=== PATIENT | male | born 1950 | race Caucasian/White ===

== ENCOUNTER 2017-04-18 09:57 | Outpatient (CLI) | payer BC ==
[2017-04-18] MEDS ORDERED: Gadobenate Dimeglumine 529 MG/1 ML (20ML VIAL) ONE (13:50)
== END 2017-04-18 09:58 | disposition home or self-care (01) ==
LOC: BICMRI 09:57
PROVIDERS: ATTEND Family Medicine
DX: M54.2 Cervicalgia (principal); J39.8 Other specified diseases of upper respiratory tract; J98.11 Atelectasis; M47.892 Other spondylosis, cervical region
CPT/HCPCS: 70543; A9579

== ENCOUNTER 2020-05-18 16:46 | Inpatient (IN) | payer MEDICARE, OTHER ==
[2020-05-18] MEDS ORDERED: Acetaminophen 500 MG TAB ONE (17:18)
[2020-05-18] MEDS ORDERED: Ketorolac Tromethamine 30 MG/ML VIAL ONE (17:18)
[2020-05-18 17:29] LABS: #Eosinphils 0.4 thou/uL (0.0-0.7); #Lymphocytes 1.4 thou/uL (1.20-3.40); #Monocytes 0.8 thou/uL (0.11-0.59); #Neutrophils 5.1 thou/uL (1.40-6.50); %Basophils 0.2 % (0.0-1.0); %Eosinophils 5.1 % (0.0-10.0); %Lymphocytes 18.5 % (21.0-51.0); %Monocytes 10.8 % (0.0-10.0); %Neutrophils 65.4 % (42.0-75.0); Hemoglobin 14.3 g/dL (14.0-18.0); Mean Corpuscular HGB CONC 34.1 g/dL (32.0-36.0); Mean Platelet Volume 6.3 fL (7.4-10.4); Platelet Count 172 thou/uL (130-400); RBC Distribution Width 11.7 % (11.5-14.5); White Blood Cell (WBC) Count 7.8 thou/uL (4.8-10.8)
[2020-05-18 18:21] LABS: ALT (SGPT) 24 U/L (8-55); AST (SGOT) 29 U/L (5-34); Albumin 3.9 g/dL (3.4-4.8); Alkaline Phosphatase 81 U/L (40-110); Anion Gap 14 mmol/L (10-20); BUN (Urea Nitrogen) 16 mg/dL (8.4-25.7); Bilirubin, Total 0.5 mg/dL (0.2-1.2); Calc. Creatinine Clearance 0 mL/min (70-130); Calcium 9.7 mg/dL (7.8-10.44); Carbon Dioxide 24 mmol/L (23-31); Chloride 102 mmol/L (98-107); Globulin 4.9 g/dL (2.4-3.5); Glucose 231 mg/dL (80-115); Potassium 4.3 mmol/L (3.5-5.1); Protein, Total 8.8 g/dL (5.8-8.1); Sodium 136 mmol/L (136-145)
[2020-05-18] MEDS ORDERED: Benzonatate 100 MG CAP ONE (18:36)
[2020-05-18] MEDS ORDERED: Acetaminophen/Codeine 30-300mg Tablet ONE (18:36)
[2020-05-18 18:48] LABS: SARS-CoV-2 NAA Rapid Test Not Detected (NotDetected)
[2020-05-18] MEDS ORDERED: Promethazine HCl 12.5 MG in Sodium Chloride 0.9% 50 ML IVPB PRN (21:48)
[2020-05-18] MEDS ORDERED: cloNIDine 0.1 MG TAB PO PRN (21:48)
[2020-05-18] MEDS ORDERED: Ondansetron PF 4 MG/2 ML Vial IVP PRN (21:48)
[2020-05-18] MEDS ORDERED: Electrolyte Replacement Protocol 1 EACH FS SCH (22:00)
[2020-05-18] MEDS ORDERED: Vancomycin HCl 1 GM in Sodium Chloride 0.9% 250 ML 250 ML IVPB SCH (22:15)
[2020-05-19] MEDS ORDERED: Dextrose 50% Abboject 50 ML SYRINGE SLOW IVP PRN (02:00)
[2020-05-19] MEDS ORDERED: Dextrose 5% in Water 1,000 ML IV PRN (02:00)
[2020-05-19] MEDS ORDERED: Azithromycin 500 MG VIAL ONE (02:07)
[2020-05-19] MEDS: Azithromycin 500 MG in Sodium Chloride 0.9% 250 ML 250 ML IVPB SCH ×2 (02:12→23:00)
[2020-05-19] MEDS: Guaifenesin DM 100-10/5 ML UDCUP PO PRN ×2 (04:02→23:47)
[2020-05-19 05:09] LABS: #Eosinphils 0.4 thou/uL (0.0-0.7); #Lymphocytes 1.2 thou/uL (1.20-3.40); #Monocytes 0.4 thou/uL (0.11-0.59); #Neutrophils 3.4 thou/uL (1.40-6.50); %Eosinophils 6.8 % (0.0-10.0); %Lymphocytes 21.8 % (21.0-51.0); %Monocytes 8.2 % (0.0-10.0); %Neutrophils 63.2 % (42.0-75.0); Hemoglobin 13.1 g/dL (14.0-18.0); Mean Corpuscular HGB CONC 34.3 g/dL (32.0-36.0); Mean Corpuscular Hemoglobin 31.5 pg (27.0-31.0); Mean Corpuscular Volume 91.9 fL (78.0-98.0); Mean Platelet Volume 6.5 fL (7.4-10.4); Platelet Count 150 thou/uL (130-400); RBC Distribution Width 11.8 % (11.5-14.5); Red Blood Cell (RBC) Count 4.16 mill/uL (4.70-6.10); White Blood Cell (WBC) Count 5.4 thou/uL (4.8-10.8)
[2020-05-19 05:19] LABS: Anion Gap 13 mmol/L (10-20); BUN (Urea Nitrogen) 19 mg/dL (8.4-25.7); Calc. Creatinine Clearance 0 mL/min (70-130); Calcium 8.7 mg/dL (7.8-10.44); Carbon Dioxide 22 mmol/L (23-31); Chloride 104 mmol/L (98-107); Glucose 222 mg/dL (80-115); Magnesium 1.8 mg/dL (1.6-2.6); Potassium 4.3 mmol/L (3.5-5.1); Sodium 135 mmol/L (136-145)
[2020-05-19] MEDS ORDERED: Benzonatate 100 MG CAP ONE (05:38)
[2020-05-19] MEDS ORDERED: Magnesium 2 GM/50 ML 2 GM in Premix Bag 1 BAG IVPB SCH ×2 (06:30→16:15)
[2020-05-19] MEDS ORDERED: Famotidine 20 MG TAB ONE (09:10)
[2020-05-19] MEDS: Famotidine 20 MG TAB PO SCH ×2 (10:07→20:34)
[2020-05-19] MEDS: Polyethylene Glycol 3350 17 GM Packet PO SCH (10:09)
[2020-05-19 11:33] VITALS: BMI 35.1
[2020-05-19] MEDS: HumaLOG 300 UNITS/3 ML VIAL SC PRN (16:58)
[2020-05-19] MEDS: Benzonatate 100 MG CAP PO PRN (20:34)
[2020-05-19] MEDS: Enoxaparin Sodium 40 MG/0.4 ML SYRINGE SC SCH (20:35)
[2020-05-19] MEDS ORDERED: Azithromycin 500 MG in Syringe 0 ML IVPB SCH (21:00)
[2020-05-19] MEDS: cefTRIAXone\\ROCEPHIN 1 GM in Sodium Chloride 0.9% 100 ML IVPB SCH (23:00)
[2020-05-20] MEDS: Benzonatate 100 MG CAP PO PRN ×3 (01:05→19:56)
[2020-05-20] MEDS: Acetaminophen 325 MG TAB PO PRN ×3 (02:29→20:11)
[2020-05-20 06:25] LABS: #Eosinphils 0.4 thou/uL (0.0-0.7); #Lymphocytes 1.1 thou/uL (1.20-3.40); #Monocytes 0.5 thou/uL (0.11-0.59); #Neutrophils 3.3 thou/uL (1.40-6.50); %Basophils 0.2 % (0.0-1.0); %Eosinophils 6.7 % (0.0-10.0); %Lymphocytes 21.4 % (21.0-51.0); %Monocytes 8.9 % (0.0-10.0); %Neutrophils 62.8 % (42.0-75.0); Hemoglobin 11.4 g/dL (14.0-18.0); Mean Corpuscular HGB CONC 33.5 g/dL (32.0-36.0); Mean Corpuscular Hemoglobin 30.7 pg (27.0-31.0); Mean Corpuscular Volume 91.5 fL (78.0-98.0); Mean Platelet Volume 6.6 fL (7.4-10.4); Platelet Count 135 thou/uL (130-400); RBC Distribution Width 11.8 % (11.5-14.5); Red Blood Cell (RBC) Count 3.72 mill/uL (4.70-6.10); White Blood Cell (WBC) Count 5.3 thou/uL (4.8-10.8)
[2020-05-20 06:42] LABS: Anion Gap 12 mmol/L (10-20); BUN (Urea Nitrogen) 13 mg/dL (8.4-25.7); Calc. Creatinine Clearance 97 mL/min (70-130); Calcium 8.2 mg/dL (7.8-10.44); Carbon Dioxide 24 mmol/L (23-31); Chloride 102 mmol/L (98-107); Glucose 194 mg/dL (80-115); Magnesium 1.9 mg/dL (1.6-2.6); Potassium 3.6 mmol/L (3.5-5.1); Sodium 134 mmol/L (136-145)
[2020-05-20] MEDS ORDERED: Magnesium 2 GM/50 ML 2 GM in Premix Bag 1 BAG IVPB SCH (07:30)
[2020-05-20] MEDS: Polyethylene Glycol 3350 17 GM Packet PO SCH (09:10)
[2020-05-20] MEDS: Famotidine 20 MG TAB PO SCH ×2 (09:17→19:55)
[2020-05-20] MEDS: Guaifenesin DM 100-10/5 ML UDCUP PO PRN (12:27)
[2020-05-20] MEDS: HumaLOG 300 UNITS/3 ML VIAL SC PRN ×2 (12:28→16:52)
[2020-05-20] MEDS: Enoxaparin Sodium 40 MG/0.4 ML SYRINGE SC SCH (19:56)
[2020-05-20] MEDS: cefTRIAXone\\ROCEPHIN 1 GM in Sodium Chloride 0.9% 100 ML IVPB SCH (23:58)
[2020-05-21] MEDS: Acetaminophen 325 MG TAB PO PRN (00:11)
[2020-05-21] MEDS: Guaifenesin DM 100-10/5 ML UDCUP PO PRN ×3 (00:22→18:47)
[2020-05-21] MEDS: Azithromycin 500 MG in Sodium Chloride 0.9% 250 ML 250 ML IVPB SCH (01:25)
[2020-05-21 02:16] LABS: #Eosinphils 0.2 thou/uL (0.0-0.7); #Lymphocytes 0.9 thou/uL (1.20-3.40); #Monocytes 0.3 thou/uL (0.11-0.59); #Neutrophils 3.5 thou/uL (1.40-6.50); %Basophils 0.3 % (0.0-1.0); %Eosinophils 4.2 % (0.0-10.0); %Lymphocytes 17.2 % (21.0-51.0); %Monocytes 6.9 % (0.0-10.0); %Neutrophils 71.5 % (42.0-75.0); Hemoglobin 12.3 g/dL (14.0-18.0); Mean Corpuscular HGB CONC 34.5 g/dL (32.0-36.0); Mean Corpuscular Hemoglobin 31.3 pg (27.0-31.0); Mean Corpuscular Volume 90.7 fL (78.0-98.0); Mean Platelet Volume 6.5 fL (7.4-10.4); Platelet Count 148 thou/uL (130-400); RBC Distribution Width 11.7 % (11.5-14.5); Red Blood Cell (RBC) Count 3.92 mill/uL (4.70-6.10)
[2020-05-21 02:32] LABS: Lactic Acid 1.9 mmol/L (0.5-2.2)
[2020-05-21 02:45] LABS: Anion Gap 14 mmol/L (10-20); BUN (Urea Nitrogen) 9 mg/dL (8.4-25.7); Calc. Creatinine Clearance 101 mL/min (70-130); Calcium 8.4 mg/dL (7.8-10.44); Carbon Dioxide 19 mmol/L (23-31); Chloride 103 mmol/L (98-107); Glucose 223 mg/dL (80-115); Magnesium 2.2 mg/dL (1.6-2.6); Potassium 3.4 mmol/L (3.5-5.1); Sodium 133 mmol/L (136-145)
[2020-05-21] MEDS ORDERED: Propranolol 40 MG TAB PO SCH (02:45)
[2020-05-21] MEDS ORDERED: Potassium Chloride 20 MEQ TAB PO SCH (03:15)
[2020-05-21] MEDS ORDERED: Dexamethasone 4 mg/ml Vial SLOW IVP SCH (04:30)
[2020-05-21] MEDS ORDERED: Enoxaparin Sodium 100 MG/ML SYRINGE SC SCH (04:30)
[2020-05-21] MEDS: HumaLOG 300 UNITS/3 ML VIAL SC PRN ×3 (06:13→20:43)
[2020-05-21 08:54] LABS: SARS-CoV-2 PCR by NAA Not Detected (NotDetected)
[2020-05-21] MEDS ORDERED: VANCOMYCIN 1.25 GM/250 ML BAG 1.25 GM in Premix Bag 1 BAG IVPB SCH (09:00)
[2020-05-21] MEDS ORDERED: Zinc Sulfate 220 MG CAP PO SCH (09:00)
[2020-05-21] MEDS: Folic Acid 1 MG TAB PO SCH (09:43)
[2020-05-21] MEDS: Ascorbic Acid 500 mg Chewable Tablet PO SCH (09:43)
[2020-05-21] MEDS: Polyethylene Glycol 3350 17 GM Packet PO SCH (09:44)
[2020-05-21] MEDS: Famotidine 20 MG TAB PO SCH ×2 (09:44→20:27)
[2020-05-21] MEDS ORDERED: Iopamidol-370 76% 500 ML 1 ML ONE (11:43)
[2020-05-21] MEDS: Piperacillin/Tazobactam 4.5 GM in Sodium Chloride 0.9% 100 ML IVPB SCH ×3 (12:16→23:21)
[2020-05-21] MEDS: Labetalol HCl 100 MG/20 ML VIAL SLOW IVP PRN (12:22)
[2020-05-21] MEDS: hydrALAZINE 20 MG/ML VIAL SLOW IVP PRN (16:57)
[2020-05-21] MEDS ORDERED: Gabapentin 300 MG CAP PO PRN (18:44)
[2020-05-21] MEDS ORDERED: Loperamide HCl 2 MG CAP PO PRN (18:47)
[2020-05-21] MEDS: Benzonatate 100 MG CAP PO PRN (18:47)
[2020-05-21] MEDS ORDERED: Lisinopril 10 MG TAB PO SCH (19:00)
[2020-05-21] MEDS ORDERED: Fluticasone Propionate Nasal Spray 16 gm Bottle NASAL PRN (19:09)
[2020-05-21] MEDS: Sulfameth/Trimethoprim SS 400-80MG TAB PO SCH (20:29)
[2020-05-21] MEDS: Doxycycline 100 MG CAP PO SCH (20:29)
[2020-05-21] MEDS: Enoxaparin Sodium 100 MG/ML SYRINGE SC SCH (20:30)
[2020-05-22] MEDS: Piperacillin/Tazobactam 4.5 GM in Sodium Chloride 0.9% 100 ML IVPB SCH ×4 (05:11→23:57)
[2020-05-22 05:15] LABS: #Lymphocytes 1.2 thou/uL (1.20-3.40); #Monocytes 0.4 thou/uL (0.11-0.59); #Neutrophils 5.7 thou/uL (1.40-6.50); %Basophils 0.2 % (0.0-1.0); %Eosinophils 0.6 % (0.0-10.0); %Lymphocytes 16.7 % (21.0-51.0); %Monocytes 5.1 % (0.0-10.0); %Neutrophils 77.6 % (42.0-75.0); Hemoglobin 11.4 g/dL (14.0-18.0); Mean Corpuscular HGB CONC 34.2 g/dL (32.0-36.0); Mean Corpuscular Hemoglobin 31.1 pg (27.0-31.0); Mean Corpuscular Volume 90.7 fL (78.0-98.0); Mean Platelet Volume 6.8 fL (7.4-10.4); Platelet Count 182 thou/uL (130-400); RBC Distribution Width 11.7 % (11.5-14.5); Red Blood Cell (RBC) Count 3.68 mill/uL (4.70-6.10); White Blood Cell (WBC) Count 7.3 thou/uL (4.8-10.8)
[2020-05-22 05:34] LABS: ALT (SGPT) 29 U/L (8-55); AST (SGOT) 30 U/L (5-34); Alkaline Phosphatase 66 U/L (40-110); Anion Gap 12 mmol/L (10-20); BUN (Urea Nitrogen) 17 mg/dL (8.4-25.7); Bilirubin, Total 0.3 mg/dL (0.2-1.2); Calc. Creatinine Clearance 96 mL/min (70-130); Calcium 8.1 mg/dL (7.8-10.44); Carbon Dioxide 20 mmol/L (23-31); Chloride 105 mmol/L (98-107); Globulin 4.2 g/dL (2.4-3.5); Glucose 298 mg/dL (80-115); Potassium 3.6 mmol/L (3.5-5.1); Protein, Total 7.2 g/dL (5.8-8.1); Sodium 133 mmol/L (136-145)
[2020-05-22] MEDS: HumaLOG 300 UNITS/3 ML VIAL SC PRN ×3 (05:56→21:47)
[2020-05-22] MEDS ORDERED: Sodium Chloride 0.65% Nasal 44 ML BOT EA NARE PRN (07:20)
[2020-05-22] MEDS ORDERED: Bisacodyl 5 MG TAB PO PRN (07:20)
[2020-05-22] MEDS ORDERED: Temazepam 15 MG CAP PO PRN (07:20)
[2020-05-22] MEDS ORDERED: Senokot S 8.6-50 MG TAB PO PRN (07:20)
[2020-05-22] MEDS ORDERED: Cepastat Lozenges 1 LOZ PO PRN (07:20)
[2020-05-22] MEDS ORDERED: GUAIFENESIN SF SOLN 200 MG/10 ML UDCUP PO PRN (07:20)
[2020-05-22] MEDS ORDERED: Ondansetron ODT 4 MG TAB PO PRN (07:20)
[2020-05-22] MEDS ORDERED: Loratadine 10 MG TAB PO PRN (07:20)
[2020-05-22] MEDS ORDERED: MAGNESIUM GLUCONATE 27.5 MG PO SCH (09:00)
[2020-05-22] MEDS ORDERED: CARBINOXAMINE MALEATE 4 MG PO SCH (09:00)
[2020-05-22] MEDS ORDERED: Dexamethasone 4 mg/ml Vial SLOW IVP SCH (09:00)
[2020-05-22] MEDS ORDERED: Ivermectin 3 MG TAB PO SCH (09:00)
[2020-05-22] MEDS: Lisinopril 10 MG TAB PO SCH (09:02)
[2020-05-22] MEDS: Propranolol 40 MG TAB PO SCH (09:03)
[2020-05-22] MEDS: Enoxaparin Sodium 100 MG/ML SYRINGE SC SCH ×2 (09:03→21:10)
[2020-05-22] MEDS: Doxycycline 100 MG CAP PO SCH ×2 (09:04→21:12)
[2020-05-22] MEDS: Multivit, Therapeutic 1 TAB PO SCH (09:04)
[2020-05-22] MEDS: Fish Oil 1,000 MG CAP PO SCH (09:04)
[2020-05-22] MEDS: Ascorbic Acid 500 mg Chewable Tablet PO SCH (09:04)
[2020-05-22] MEDS: Aspirin 81 mg Enteric Coated Tablet PO SCH (09:04)
[2020-05-22] MEDS: Folic Acid 1 MG TAB PO SCH (09:05)
[2020-05-22] MEDS: Alogliptin 25 MG TAB PO SCH (09:05)
[2020-05-22] MEDS: Cholecalciferol 1,000 UNITS (25 MCG) TAB PO SCH (09:06)
[2020-05-22] MEDS: Polyethylene Glycol 3350 17 GM Packet PO SCH (09:06)
[2020-05-22] MEDS: Sulfameth/Trimethoprim SS 400-80MG TAB PO SCH ×2 (09:06→21:11)
[2020-05-22 09:39] LABS: Hemoglobin 12.4 g/dL (14.0-18.0); Platelet Count 188 thou/uL (130-400)
[2020-05-22] MEDS: Benzonatate 100 MG CAP PO PRN ×2 (10:03→14:24)
[2020-05-22] MEDS: Stress 600 With Zinc 1 TAB PO SCH (12:20)
[2020-05-22] MEDS: Guaifenesin DM 100-10/5 ML UDCUP PO PRN (14:23)
[2020-05-22] MEDS: Acetaminophen 325 MG TAB PO PRN (14:23)
[2020-05-22] MEDS: methylPREDNISolone Sod Succ/PF 125 MG/2 ML VIAL IVP SCH ×2 (18:15→23:54)
[2020-05-22] MEDS: Amiodarone 450 MG in Dextrose 5% in Water 250 ML IVPB SCH (19:19)
[2020-05-23] MEDS ORDERED: Piperacillin/Tazobactam 4.5 GM VIAL ONE (00:07)
[2020-05-23] MEDS: Piperacillin/Tazobactam 4.5 GM in Sodium Chloride 0.9% 100 ML IVPB SCH ×4 (04:51→23:05)
[2020-05-23] MEDS: methylPREDNISolone Sod Succ/PF 125 MG/2 ML VIAL IVP SCH ×5 (04:52→23:19)
[2020-05-23 05:20] LABS: #Lymphocytes 0.7 thou/uL (1.20-3.40); #Monocytes 0.1 thou/uL (0.11-0.59); #Neutrophils 5.7 thou/uL (1.40-6.50); %Basophils 0.3 % (0.0-1.0); %Eosinophils 0.6 % (0.0-10.0); Mean Corpuscular HGB CONC 33.3 g/dL (32.0-36.0); Mean Corpuscular Hemoglobin 30.8 pg (27.0-31.0); Mean Corpuscular Volume 92.6 fL (78.0-98.0); Mean Platelet Volume 7.8 fL (7.4-10.4); Platelet Count 156 thou/uL (130-400); RBC Distribution Width 12.1 % (11.5-14.5); Red Blood Cell (RBC) Count 4.22 mill/uL (4.70-6.10); White Blood Cell (WBC) Count 6.6 thou/uL (4.8-10.8)
[2020-05-23 06:34] LABS: Hemoglobin A1c 9.5 % (4.0-6.0)
[2020-05-23] MEDS: HumaLOG 300 UNITS/3 ML VIAL SC PRN ×4 (06:46→20:45)
[2020-05-23 07:28] LABS: Anion Gap 16 mmol/L (10-20); BUN (Urea Nitrogen) 18 mg/dL (8.4-25.7); Calc. Creatinine Clearance 95 mL/min (70-130); Calcium 8.6 mg/dL (7.8-10.44); Carbon Dioxide 20 mmol/L (23-31); Chloride 104 mmol/L (98-107); Glucose 316 mg/dL (80-115); Potassium 4.1 mmol/L (3.5-5.1); Sodium 136 mmol/L (136-145)
[2020-05-23] MEDS: Propranolol 40 MG TAB PO SCH (07:55)
[2020-05-23] MEDS: Enoxaparin Sodium 100 MG/ML SYRINGE SC SCH ×2 (07:55→20:44)
[2020-05-23] MEDS: Alogliptin 25 MG TAB PO SCH (07:55)
[2020-05-23] MEDS: Ascorbic Acid 500 mg Chewable Tablet PO SCH (07:56)
[2020-05-23] MEDS: Multivit, Therapeutic 1 TAB PO SCH (07:56)
[2020-05-23] MEDS: Cholecalciferol 1,000 UNITS (25 MCG) TAB PO SCH (07:56)
[2020-05-23] MEDS: Sulfameth/Trimethoprim SS 400-80MG TAB PO SCH ×2 (07:56→20:44)
[2020-05-23] MEDS: Lisinopril 10 MG TAB PO SCH (07:56)
[2020-05-23] MEDS: Aspirin 81 mg Enteric Coated Tablet PO SCH (07:57)
[2020-05-23] MEDS: Doxycycline 100 MG CAP PO SCH ×2 (07:57→20:44)
[2020-05-23] MEDS: Fish Oil 1,000 MG CAP PO SCH (07:57)
[2020-05-23] MEDS: Folic Acid 1 MG TAB PO SCH (07:57)
[2020-05-23] MEDS: Polyethylene Glycol 3350 17 GM Packet PO SCH (07:57)
[2020-05-23] MEDS: Stress 600 With Zinc 1 TAB PO SCH (11:05)
[2020-05-23] MEDS: Famotidine 20 MG TAB PO SCH ×2 (11:05→20:44)
[2020-05-23] MEDS: IVERMECTIN 3 MG TAB PO SCH (16:31)
[2020-05-23] MEDS ORDERED: methylPREDNISolone Sod Succ 40 MG VIAL IVP SCH (18:00)
[2020-05-23] MEDS ORDERED: Bacteriostatic Water 30 ML VIAL FS PRN (18:00)
[2020-05-23] MEDS ORDERED: methylPREDNISolone Sod Succ/PF 125 MG/2 ML VIAL IVP SCH (18:00)
[2020-05-23] MEDS: Amiodarone 450 MG in Dextrose 5% in Water 250 ML IVPB SCH (18:55)
[2020-05-24] MEDS: HumaLOG 300 UNITS/3 ML VIAL SC PRN ×4 (04:59→21:17)
[2020-05-24] MEDS: Piperacillin/Tazobactam 4.5 GM in Sodium Chloride 0.9% 100 ML IVPB SCH ×4 (05:00→23:44)
[2020-05-24] MEDS: methylPREDNISolone Sod Succ/PF 125 MG/2 ML VIAL IVP SCH (05:01)
[2020-05-24 09:00] LABS: Hemoglobin 11.8 g/dL (14.0-18.0); Platelet Count 226 thou/uL (130-400)
[2020-05-24 09:37] LABS: Antinuclear AB Negative (Negative); Complement-C3 (Sendout) 142 mg/dL (82-167); Complement-C4 (Sendout) 11 mg/dL (12-38); DSDNA Autoabs (FARR) Sendout 6 IU/mL (0-9); Smooth Muscle Total Antibodies <0.2 AI (0.0-0.9); Thyroid Peroxidase Ab-Sendout 11 IU/mL (0-34); U1 RNP/snRNP IgG Autoabs <0.2 AI (0.0-0.9)
[2020-05-24] MEDS: Lisinopril 10 MG TAB PO SCH (09:58)
[2020-05-24] MEDS: Fish Oil 1,000 MG CAP PO SCH (09:59)
[2020-05-24] MEDS: Cholecalciferol 1,000 UNITS (25 MCG) TAB PO SCH (09:59)
[2020-05-24] MEDS: Famotidine 20 MG TAB PO SCH ×2 (09:59→20:58)
[2020-05-24] MEDS: Ascorbic Acid 500 mg Chewable Tablet PO SCH (09:59)
[2020-05-24] MEDS: Folic Acid 1 MG TAB PO SCH (10:00)
[2020-05-24] MEDS: Doxycycline 100 MG CAP PO SCH ×2 (10:00→20:55)
[2020-05-24] MEDS: Sulfameth/Trimethoprim SS 400-80MG TAB PO SCH ×2 (10:00→20:57)
[2020-05-24] MEDS: Enoxaparin Sodium 100 MG/ML SYRINGE SC SCH ×2 (10:01→20:56)
[2020-05-24] MEDS: Alogliptin 25 MG TAB PO SCH (10:01)
[2020-05-24] MEDS: Propranolol 40 MG TAB PO SCH (10:01)
[2020-05-24] MEDS: Aspirin 81 mg Enteric Coated Tablet PO SCH (10:01)
[2020-05-24] MEDS: Multivit, Therapeutic 1 TAB PO SCH (10:03)
[2020-05-24] MEDS: NPH, Human Insulin Isophane 300 UNIT/3 ML VIAL SC SCH ×2 (10:04→21:16)
[2020-05-24] MEDS: Polyethylene Glycol 3350 17 GM Packet PO SCH (10:10)
[2020-05-24] MEDS: Amiodarone 450 MG in Dextrose 5% in Water 250 ML IVPB SCH (11:56)
[2020-05-24] MEDS: methylPREDNISolone Sod Succ 40 MG VIAL IVP SCH ×3 (12:00→23:44)
[2020-05-24] MEDS: Stress 600 With Zinc 1 TAB PO SCH (12:00)
[2020-05-24] MEDS: IVERMECTIN 3 MG TAB PO SCH (16:00)
[2020-05-24] MEDS: Amiodarone 200 MG TAB PO SCH (20:55)
[2020-05-24] MEDS ORDERED: Insulin Glargine 25 UNITS in Pre-Filled Syringe 1 EACH SC SCH (23:30)
[2020-05-24] MEDS ORDERED: Insulin Regular 300 UNITS/3 ML VIAL SC SCH (23:30)
[2020-05-25 00:07] LABS: Mycoplasma pneumoniae IgG AB 592 U/mL (0-99); Mycoplasma pneumoniae IgM AB 985 U/mL (0-769)
[2020-05-25] MEDS: methylPREDNISolone Sod Succ 40 MG VIAL IVP SCH (05:03)
[2020-05-25] MEDS: Piperacillin/Tazobactam 4.5 GM in Sodium Chloride 0.9% 100 ML IVPB SCH ×3 (05:03→18:09)
[2020-05-25 05:32] LABS: #Lymphocytes 0.8 thou/uL (1.20-3.40); #Monocytes 0.5 thou/uL (0.11-0.59); #Neutrophils 9.1 thou/uL (1.40-6.50); %Basophils 0.1 % (0.0-1.0); %Eosinophils 0.1 % (0.0-10.0); %Lymphocytes 7.2 % (21.0-51.0); %Monocytes 4.9 % (0.0-10.0); %Neutrophils 87.7 % (42.0-75.0); Hemoglobin 11.6 g/dL (14.0-18.0); Mean Corpuscular HGB CONC 33.4 g/dL (32.0-36.0); Mean Corpuscular Hemoglobin 31.2 pg (27.0-31.0); Mean Corpuscular Volume 93.6 fL (78.0-98.0); Platelet Count 209 thou/uL (130-400); RBC Distribution Width 11.8 % (11.5-14.5); Red Blood Cell (RBC) Count 3.72 mill/uL (4.70-6.10); White Blood Cell (WBC) Count 10.4 thou/uL (4.8-10.8)
[2020-05-25] MEDS: HumaLOG 300 UNITS/3 ML VIAL SC PRN ×4 (05:38→21:08)
[2020-05-25 05:52] LABS: Anion Gap 9 mmol/L (10-20); BUN (Urea Nitrogen) 22 mg/dL (8.4-25.7); CRP (Inflammatory) 5.31 mg/dL (= or < 0.5); Calc. Creatinine Clearance 104 mL/min (70-130); Calcium 8.1 mg/dL (7.8-10.44); Carbon Dioxide 25 mmol/L (23-31); Chloride 104 mmol/L (98-107); Glucose 285 mg/dL (80-115); Potassium 4.4 mmol/L (3.5-5.1); Sodium 134 mmol/L (136-145)
[2020-05-25] MEDS: Ascorbic Acid 500 mg Chewable Tablet PO SCH (09:28)
[2020-05-25] MEDS: Alogliptin 25 MG TAB PO SCH (09:28)
[2020-05-25] MEDS: Amiodarone 200 MG TAB PO SCH ×2 (09:28→20:50)
[2020-05-25] MEDS: Doxycycline 100 MG CAP PO SCH ×2 (09:29→20:50)
[2020-05-25] MEDS: Enoxaparin Sodium 100 MG/ML SYRINGE SC SCH ×2 (09:29→20:51)
[2020-05-25] MEDS: Aspirin 81 mg Enteric Coated Tablet PO SCH (09:29)
[2020-05-25] MEDS: Cholecalciferol 1,000 UNITS (25 MCG) TAB PO SCH (09:29)
[2020-05-25] MEDS: Famotidine 20 MG TAB PO SCH ×2 (09:30→20:50)
[2020-05-25] MEDS: Folic Acid 1 MG TAB PO SCH (09:30)
[2020-05-25] MEDS: Fish Oil 1,000 MG CAP PO SCH (09:30)
[2020-05-25] MEDS: Multivit, Therapeutic 1 TAB PO SCH (09:31)
[2020-05-25] MEDS: NPH, Human Insulin Isophane 300 UNIT/3 ML VIAL SC SCH ×2 (09:31→21:00)
[2020-05-25] MEDS: Lisinopril 10 MG TAB PO SCH (09:31)
[2020-05-25] MEDS: Sulfameth/Trimethoprim SS 400-80MG TAB PO SCH (09:32)
[2020-05-25] MEDS: Polyethylene Glycol 3350 17 GM Packet PO SCH (09:32)
[2020-05-25] MEDS: Propranolol 40 MG TAB PO SCH (10:53)
[2020-05-25] MEDS: Stress 600 With Zinc 1 TAB PO SCH (11:52)
[2020-05-25] MEDS: IVERMECTIN 3 MG TAB PO SCH (16:08)
[2020-05-26] MEDS: Piperacillin/Tazobactam 4.5 GM in Sodium Chloride 0.9% 100 ML IVPB SCH ×5 (03:38→22:05)
[2020-05-26] MEDS: HYDROcodone/Acetaminophen 5/325 mg Tablet PO PRN ×2 (03:51→08:07)
[2020-05-26] MEDS: HumaLOG 300 UNITS/3 ML VIAL SC PRN ×4 (06:09→21:09)
[2020-05-26] MEDS: NPH, Human Insulin Isophane 300 UNIT/3 ML VIAL SC SCH ×2 (08:02→21:12)
[2020-05-26] MEDS: Guaifenesin DM 100-10/5 ML UDCUP PO PRN (08:06)
[2020-05-26] MEDS: Aspirin 81 mg Enteric Coated Tablet PO SCH (08:07)
[2020-05-26] MEDS: Propranolol 40 MG TAB PO SCH ×2 (08:07→21:16)
[2020-05-26] MEDS: Amiodarone 200 MG TAB PO SCH ×2 (08:09→21:16)
[2020-05-26] MEDS: Famotidine 20 MG TAB PO SCH ×2 (08:09→21:16)
[2020-05-26] MEDS: Ascorbic Acid 500 mg Chewable Tablet PO SCH (08:09)
[2020-05-26] MEDS: predniSONE 20 MG TAB PO SCH (08:09)
[2020-05-26] MEDS: Alogliptin 25 MG TAB PO SCH (08:09)
[2020-05-26] MEDS: Lisinopril 10 MG TAB PO SCH (08:09)
[2020-05-26] MEDS: Enoxaparin Sodium 100 MG/ML SYRINGE SC SCH (08:10)
[2020-05-26] MEDS: Multivit, Therapeutic 1 TAB PO SCH (08:10)
[2020-05-26] MEDS: Doxycycline 100 MG CAP PO SCH ×2 (08:10→21:16)
[2020-05-26] MEDS: Fish Oil 1,000 MG CAP PO SCH (08:10)
[2020-05-26] MEDS: Folic Acid 1 MG TAB PO SCH (08:10)
[2020-05-26] MEDS: Cholecalciferol 1,000 UNITS (25 MCG) TAB PO SCH (08:28)
[2020-05-26] MEDS: Polyethylene Glycol 3350 17 GM Packet PO SCH (08:30)
[2020-05-26] MEDS ORDERED: Lisinopril 10 MG TAB PO SCH (11:30)
[2020-05-26] MEDS: Stress 600 With Zinc 1 TAB PO SCH (12:41)
[2020-05-26] MEDS: Apixaban 5 MG TAB PO SCH ×2 (12:42→21:16)
[2020-05-26 15:18] LABS: Platelet Count 260 thou/uL (130-400)
[2020-05-26] MEDS: IVERMECTIN 3 MG TAB PO SCH (16:29)
[2020-05-26 18:38] LABS: A. flavus Negative (Neg:<1:1); A. fumigatus Negative (Neg:<1:1); A. niger Negative (Neg:<1:1); Blastomyces AB Negative (Neg:<1:1)
[2020-05-26] MEDS: Labetalol HCl 100 MG/20 ML VIAL SLOW IVP PRN (22:02)
[2020-05-27] MEDS: hydrALAZINE 20 MG/ML VIAL SLOW IVP PRN (00:01)
[2020-05-27] MEDS: Piperacillin/Tazobactam 4.5 GM in Sodium Chloride 0.9% 100 ML IVPB SCH ×3 (04:04→14:00)
[2020-05-27] MEDS: Labetalol HCl 100 MG/20 ML VIAL SLOW IVP PRN (04:09)
[2020-05-27] MEDS: HumaLOG 300 UNITS/3 ML VIAL SC PRN ×4 (06:14→21:36)
[2020-05-27] MEDS ORDERED: Lisinopril 10 MG TAB PO SCH (09:00)
[2020-05-27] MEDS: Guaifenesin DM 100-10/5 ML UDCUP PO PRN (09:12)
[2020-05-27] MEDS: predniSONE 20 MG TAB PO SCH (09:14)
[2020-05-27] MEDS: Doxycycline 100 MG CAP PO SCH ×2 (09:14→20:07)
[2020-05-27] MEDS: Alogliptin 25 MG TAB PO SCH (09:14)
[2020-05-27] MEDS: Propranolol 40 MG TAB PO SCH ×2 (09:14→20:10)
[2020-05-27] MEDS: Aspirin 81 mg Enteric Coated Tablet PO SCH (09:15)
[2020-05-27] MEDS: Cholecalciferol 1,000 UNITS (25 MCG) TAB PO SCH (09:15)
[2020-05-27] MEDS: Fish Oil 1,000 MG CAP PO SCH (09:15)
[2020-05-27] MEDS: Famotidine 20 MG TAB PO SCH ×2 (09:15→20:06)
[2020-05-27] MEDS: Multivit, Therapeutic 1 TAB PO SCH (09:15)
[2020-05-27] MEDS: Apixaban 5 MG TAB PO SCH ×2 (09:16→20:07)
[2020-05-27] MEDS: Ascorbic Acid 500 mg Chewable Tablet PO SCH (09:16)
[2020-05-27] MEDS: Amiodarone 200 MG TAB PO SCH ×2 (09:16→20:06)
[2020-05-27] MEDS: Polyethylene Glycol 3350 17 GM Packet PO SCH (09:17)
[2020-05-27] MEDS: Folic Acid 1 MG TAB PO SCH (09:17)
[2020-05-27] MEDS: NPH, Human Insulin Isophane 300 UNIT/3 ML VIAL SC SCH ×2 (09:21→21:36)
[2020-05-27] MEDS: Acetaminophen 325 MG TAB PO PRN (09:30)
[2020-05-27] MEDS: Stress 600 With Zinc 1 TAB PO SCH (12:34)
[2020-05-27] MEDS ORDERED: Piperacillin/Tazobactam 4.5 GM in Sodium Chloride 0.9% 100 ML IVPB SCH (14:00)
[2020-05-27] MEDS: IVERMECTIN 3 MG TAB PO SCH (17:08)
[2020-05-27] MEDS: Amoxicillin/Potassium Clav 875 MG TAB PO SCH (20:06)
[2020-05-27] MEDS: Lactinex Tablet PO SCH (20:07)
[2020-05-27] MEDS: Lisinopril 20 MG TAB PO SCH (20:16)
[2020-05-27 21:07] LABS: QuantiFERON-TB Gold Plus POSITIVE (Negative)
[2020-05-28] MEDS: HumaLOG 300 UNITS/3 ML VIAL SC PRN (05:58)
[2020-05-28] MEDS: Labetalol HCl 100 MG/20 ML VIAL SLOW IVP PRN ×2 (06:02→11:28)
[2020-05-28] MEDS: Guaifenesin DM 100-10/5 ML UDCUP PO PRN (08:32)
[2020-05-28] MEDS: Aspirin 81 mg Enteric Coated Tablet PO SCH (08:34)
[2020-05-28] MEDS: Multivit, Therapeutic 1 TAB PO SCH (08:34)
[2020-05-28] MEDS: predniSONE 20 MG TAB PO SCH (08:34)
[2020-05-28] MEDS: Famotidine 20 MG TAB PO SCH (08:34)
[2020-05-28] MEDS: Propranolol 40 MG TAB PO SCH (08:34)
[2020-05-28] MEDS: Alogliptin 25 MG TAB PO SCH (08:35)
[2020-05-28] MEDS: Ascorbic Acid 500 mg Chewable Tablet PO SCH (08:35)
[2020-05-28] MEDS: Doxycycline 100 MG CAP PO SCH (08:35)
[2020-05-28] MEDS: Folic Acid 1 MG TAB PO SCH (08:35)
[2020-05-28] MEDS: Amoxicillin/Potassium Clav 875 MG TAB PO SCH (08:35)
[2020-05-28] MEDS: Apixaban 5 MG TAB PO SCH (08:36)
[2020-05-28] MEDS: Fish Oil 1,000 MG CAP PO SCH (08:36)
[2020-05-28] MEDS: Cholecalciferol 1,000 UNITS (25 MCG) TAB PO SCH (08:36)
[2020-05-28] MEDS: Amiodarone 200 MG TAB PO SCH (08:36)
[2020-05-28] MEDS: Lactinex Tablet PO SCH (08:36)
[2020-05-28] MEDS: Lisinopril 20 MG TAB PO SCH (08:36)
[2020-05-28] MEDS: Polyethylene Glycol 3350 17 GM Packet PO SCH (08:37)
[2020-05-28 08:45] LABS: Hemoglobin 12.4 g/dL (14.0-18.0); Platelet Count 269 thou/uL (130-400)
[2020-05-28] MEDS ORDERED: Floranex Packet PO SCH (09:00)
[2020-05-28 09:04] LABS: Calc. Creatinine Clearance 114 mL/min (70-130)
[2020-05-28] MEDS: NPH, Human Insulin Isophane 300 UNIT/3 ML VIAL SC SCH (09:26)
[2020-05-28 11:08] VITALS: BP 187/91; TEMP 98
[2020-05-28] MEDS: Stress 600 With Zinc 1 TAB PO SCH (11:27)
== END 2020-05-28 13:21 | disposition home or self-care (01) | DRG 871 ==
LOC: ERS 16:46 → ERHOLD 20:20 → T4-B 05-19 11:14 → 2SW 05-21 03:47
PROVIDERS: ADMIT Internal Medicine; ATTEND Family Medicine
DX: A41.9 Sepsis, unspecified organism (principal); J18.9 Pneumonia, unspecified organism; I26.99 Other pulmonary embolism without acute cor pulmonale; J96.01 Acute respiratory failure with hypoxia; G47.33 Obstructive sleep apnea (adult) (pediatric); I48.91 Unspecified atrial fibrillation; I10 Essential (primary) hypertension; E66.9 Obesity, unspecified; Z20.822 Contact with and (suspected) exposure to COVID-19; R14.0 Abdominal distension (gaseous); L40.9 Psoriasis, unspecified; D89.89 Other specified disorders involving the immune mechanism, not elsewhere classified; T38.0X5A Adverse effect of glucocorticoids and synthetic analogues, initial encounter; Z98.890 Other specified postprocedural states; Z88.8 Allergy status to other drugs, medicaments and biological substances; Z79.2 Long term (current) use of antibiotics; Z79.899 Other long term (current) drug therapy; Z79.82 Long term (current) use of aspirin; Z86.16 Personal history of COVID-19; E11.65 Type 2 diabetes mellitus with hyperglycemia
CPT/HCPCS: 0240U; 36415; 36416; 71045; 71275; 74018; 80048; 80053; 82565; 82728; 83036; 83605; 83735; 84443; 84484; 85014; 85018; 85025; 85049; 85379; 85652; 86140; 86160; 86225; 86235; 86376; 86480; 86606; 86612; 86635; 86698; 87040; 87324; 87449; 87633; 87635; 93005; 93010; 93306; 94640; 94760; 96374; 96375; J0282; J0360; J0456; J0696; J1100; J1650; J1815; J1885; J2543; J2920; J2930; J3370; J3475; J3490; J7050; J7070; J7512; J7620; Q9967; U0003; U0005

== ENCOUNTER 2020-08-17 12:10 | Outpatient (CLI) | payer MEDICARE, OTHER | END 2020-08-17 12:11 | disposition home or self-care (01) | LOC: BICRAD 12:10 | PROVIDERS: ATTEND Internal Medicine Critical Care Medicine | DX: R06.00 Dyspnea, unspecified (principal) | CPT/HCPCS: 71046 ==

== ENCOUNTER 2020-08-19 13:07 | Emergency (ER) | payer MEDICARE, OTHER ==
[2020-08-19 14:20] LABS: #Eosinphils 0.3 thou/uL (0.0-0.7); #Lymphocytes 1.9 thou/uL (1.20-3.40); #Monocytes 0.6 thou/uL (0.11-0.59); #Neutrophils 3.9 thou/uL (1.40-6.50); %Basophils 0.6 % (0.0-1.0); %Eosinophils 5.1 % (0.0-10.0); %Lymphocytes 28.3 % (21.0-51.0); %Monocytes 8.6 % (0.0-10.0); %Neutrophils 57.3 % (42.0-75.0); Hemoglobin 13.3 g/dL (14.0-18.0); Mean Corpuscular HGB CONC 35.6 g/dL (32.0-36.0); Mean Corpuscular Hemoglobin 32.8 pg (27.0-31.0); Mean Platelet Volume 6.4 fL (7.4-10.4); Platelet Count 196 thou/uL (130-400); RBC Distribution Width 13.4 % (11.5-14.5); Red Blood Cell (RBC) Count 4.07 mill/uL (4.70-6.10); White Blood Cell (WBC) Count 6.7 thou/uL (4.8-10.8)
[2020-08-19 14:42] LABS: ALT (SGPT) 33 U/L (8-55); AST (SGOT) 25 U/L (5-34); Albumin 4.1 g/dL (3.4-4.8); Alkaline Phosphatase 68 U/L (40-110); Anion Gap 13 mmol/L (10-20); BUN (Urea Nitrogen) 29 mg/dL (8.4-25.7); Bilirubin, Total 0.3 mg/dL (0.2-1.2); CK (CPK) 30 U/L (30-200); Calc. Creatinine Clearance 0 mL/min (70-130); Calcium 9.9 mg/dL (7.8-10.44); Carbon Dioxide 28 mmol/L (23-31); Chloride 101 mmol/L (98-107); Globulin 3.3 g/dL (2.4-3.5); Glucose 153 mg/dL (80-115); Lipase 52 U/L (8-78); Potassium 4.4 mmol/L (3.5-5.1); Protein, Total 7.4 g/dL (5.8-8.1); Sodium 138 mmol/L (136-145)
[2020-08-19] MEDS ORDERED: Lorazepam 2 MG/ML VIAL ONE (14:56)
[2020-08-19] MEDS ORDERED: Fentanyl 100 MCG/2 ML VIAL ONE (14:56)
[2020-08-19] MEDS ORDERED: Dexamethasone 4 mg/ml Vial ONE (14:56)
[2020-08-19] MEDS ORDERED: Ketorolac Tromethamine 30 MG/ML VIAL ONE (14:56)
== END 2020-08-19 15:55 | disposition home or self-care (01) ==
LOC: ERS 13:07
DX: M54.12 Radiculopathy, cervical region (principal); I10 Essential (primary) hypertension; E11.9 Type 2 diabetes mellitus without complications; I48.91 Unspecified atrial fibrillation; Z86.711 Personal history of pulmonary embolism; Z87.01 Personal history of pneumonia (recurrent)
CPT/HCPCS: 36415; 72125; 80053; 82550; 83690; 84484; 85025; 93005; 96374; 96375; J1100; J1885; J2060; J3010

== ENCOUNTER 2023-03-28 10:39 | Outpatient (CLI) | payer MEDICARE, OTHER | END 2023-03-28 10:40 | disposition home or self-care (01) | LOC: BICRAD 10:39 | PROVIDERS: ATTEND Nurse Practitioner Family | DX: M54.2 Cervicalgia (principal); M47.816 Spondylosis without myelopathy or radiculopathy, lumbar region; L40.50 Arthropathic psoriasis, unspecified; M47.812 Spondylosis without myelopathy or radiculopathy, cervical region | CPT/HCPCS: 72052; 72120 ==

== ENCOUNTER 2023-04-24 14:12 | Outpatient (CLI) | payer MEDICARE, OTHER | END 2023-04-24 14:13 | disposition home or self-care (01) | LOC: MRI 14:12 | PROVIDERS: ATTEND Nurse Practitioner Family | DX: M48.061 Spinal stenosis, lumbar region without neurogenic claudication (principal); M47.26 Other spondylosis with radiculopathy, lumbar region; M47.817 Spondylosis without myelopathy or radiculopathy, lumbosacral region | CPT/HCPCS: 72148 ==

== ENCOUNTER 2023-09-29 10:40 | Emergency (ER) | payer MEDICARE, OTHER ==
[2023-09-29 11:58] LABS: #Basophils 0.04 10x3/uL (0.0-0.2); %Basophils 0.8 % (0.0-1.0); %Eosinophils 6.7 % (0.0-10.0); %Lymphocytes 23.1 % (21.0-51.0); %Monocytes 10.8 % (0.0-10.0); %Neutrophils 58.4 % (42.0-75.0); Hematocrit 44.1 % (42.0-52.0); Hemoglobin 13.7 g/dL (14.0-18.0); Mean Corpuscular HGB CONC 31.1 g/dL (32.0-36.0); Mean Corpuscular Hemoglobin 30.3 pg (27.0-31.0); Mean Corpuscular Volume 97.6 fL (78.0-98.0); Mean Platelet Volume 8.4 fL (7.4-10.4); Platelet Count 198 10x3/uL (130-400); RBC Distribution Width 14.3 % (11.5-14.5); Red Blood Cell (RBC) Count 4.52 mill/uL (4.70-6.10)
[2023-09-29 12:11] LABS: ALT (SGPT) 19 U/L (8-55); AST (SGOT) 42 U/L (5-34); Albumin 3.8 g/dL (3.4-4.8); Alkaline Phosphatase 99 U/L (40-110); Anion Gap 16 mmol/L (10-20); BUN (Urea Nitrogen) 30 mg/dL (8.4-25.7); Bilirubin, Total 0.4 mg/dL (0.2-1.2); Calc. Creatinine Clearance 0 mL/min (70-130); Calcium 9.9 mg/dL (7.8-10.44); Carbon Dioxide 25 mmol/L (23-31); Chloride 102 mmol/L (98-107); Estimated GFR 73; Globulin 4.8 g/dL (2.4-3.5); Glucose 123 mg/dL (83-110); Magnesium 2.4 mg/dL (1.6-2.6); Potassium 4.9 mmol/L (3.5-5.1); Protein, Total 8.6 g/dL (5.8-8.1); Sodium 138 mmol/L (136-145)
[2023-09-29 13:02] LABS: Troponin I Less than 0.010 ng/mL (< 0.028)
== END 2023-09-29 13:39 | disposition home or self-care (01) ==
LOC: ERS 10:40
DX: R09.89 Other specified symptoms and signs involving the circulatory and respiratory systems (principal); Z95.1 Presence of aortocoronary bypass graft; I10 Essential (primary) hypertension; E11.9 Type 2 diabetes mellitus without complications
CPT/HCPCS: 36415; 71045; 80053; 83735; 83880; 84484; 85025; 93005

== ENCOUNTER 2023-10-05 10:23 | Inpatient (IN) | payer MEDICARE, OTHER ==
[2023-10-05 12:20] LABS: #Basophils 0.03 10x3/uL (0.0-0.2); %Basophils 0.5 % (0.0-1.0); %Eosinophils 6.3 % (0.0-10.0); %Lymphocytes 19.3 % (21.0-51.0); %Monocytes 11.9 % (0.0-10.0); %Neutrophils 61.7 % (42.0-75.0); Hematocrit 40.3 % (42.0-52.0); Hemoglobin 12.7 g/dL (14.0-18.0); Mean Corpuscular HGB CONC 31.5 g/dL (32.0-36.0); Mean Platelet Volume 8.5 fL (7.4-10.4); Platelet Count 185 10x3/uL (130-400); RBC Distribution Width 14.2 % (11.5-14.5); Red Blood Cell (RBC) Count 4.24 mill/uL (4.70-6.10)
[2023-10-05 12:40] LABS: Troponin I Less than 0.010 ng/mL (< 0.028)
[2023-10-05 12:41] LABS: ALT (SGPT) 16 U/L (8-55); AST (SGOT) 19 U/L (5-34); Albumin 3.4 g/dL (3.4-4.8); Anion Gap 10 mmol/L (10-20); BUN (Urea Nitrogen) 27 mg/dL (8.4-25.7); Bilirubin, Total 0.3 mg/dL (0.2-1.2); Calc. Creatinine Clearance 0 mL/min (70-130); Calcium 9.8 mg/dL (7.8-10.44); Carbon Dioxide 29 mmol/L (23-31); Chloride 107 mmol/L (98-107); Estimated GFR 92; Globulin 3.9 g/dL (2.4-3.5); Glucose 114 mg/dL (83-110); Potassium 4.5 mmol/L (3.5-5.1); Protein, Total 7.3 g/dL (5.8-8.1); Sodium 141 mmol/L (136-145)
[2023-10-05 13:02] LABS: Alkaline Phosphatase 84 U/L (40-110)
[2023-10-05] MEDS ORDERED: Ondansetron ODT 4 MG TAB PO PRN (15:50)
[2023-10-05] MEDS ORDERED: hydrALAZINE 20 MG/ML VIAL SLOW IVP PRN (15:51)
[2023-10-05] MEDS ORDERED: Dextrose 5% in Water 1,000 ML IV PRN (16:47)
[2023-10-05] MEDS ORDERED: Glucagon 1 MG/ML KIT IM PRN (16:47)
[2023-10-05] MEDS ORDERED: Dextrose 50% Abboject 50 ML SYRINGE SLOW IVP PRN (16:47)
[2023-10-05] MEDS ORDERED: Insulin Lispro 100 UNIT/ML 10 ML VIAL SC PRN (17:17)
[2023-10-05] MEDS: Carvedilol 6.25 MG TAB PO SCH (21:34)
[2023-10-05] MEDS: Famotidine 20 MG TAB PO SCH (21:35)
[2023-10-05] MEDS: Atorvastatin Calcium 40 MG TAB PO SCH (21:35)
[2023-10-05] MEDS: traMADol HCl 50 MG TAB PO SCH (21:35)
[2023-10-05] MEDS: Gabapentin 300 MG CAP PO SCH (21:37)
[2023-10-05] MEDS: levETIRAcetam 500 MG TAB PO SCH (21:37)
[2023-10-05] MEDS: Polyethylene Glycol 3350 17 GM Packet PO SCH (21:39)
[2023-10-06] MEDS: HYDROcodone/Acetaminophen 5/325 mg Tablet PO PRN (01:51)
[2023-10-06 04:52] LABS: Anion Gap 10 mmol/L (10-20); BUN (Urea Nitrogen) 26 mg/dL (8.4-25.7); Calc. Creatinine Clearance 85 mL/min (70-130); Calcium 9.2 mg/dL (7.8-10.44); Carbon Dioxide 24 mmol/L (23-31); Chloride 105 mmol/L (98-107); Estimated GFR 85; Glucose 117 mg/dL (83-110); Potassium 3.9 mmol/L (3.5-5.1); Sodium 135 mmol/L (136-145)
[2023-10-06 05:04] LABS: #Basophils 0.04 10x3/uL (0.0-0.2); %Basophils 0.6 % (0.0-1.0); %Lymphocytes 21.7 % (21.0-51.0); %Monocytes 10.8 % (0.0-10.0); %Neutrophils 61.6 % (42.0-75.0); Hematocrit 38.4 % (42.0-52.0); Mean Corpuscular HGB CONC 31.3 g/dL (32.0-36.0); Mean Corpuscular Hemoglobin 30.1 pg (27.0-31.0); Mean Corpuscular Volume 96.2 fL (78.0-98.0); Mean Platelet Volume 8.7 fL (7.4-10.4); Platelet Count 203 10x3/uL (130-400); RBC Distribution Width 13.9 % (11.5-14.5); Red Blood Cell (RBC) Count 3.99 mill/uL (4.70-6.10)
[2023-10-06 08:22] VITALS: BMI 33.2
[2023-10-06] MEDS: Enoxaparin 40 MG (0.4 mL) SYRINGE SC SCH (08:26)
[2023-10-06] MEDS: Aspirin 325 mg Enteric Coated Tablet PO SCH (08:26)
[2023-10-06] MEDS: Tamsulosin HCl 0.4 MG CAP PO SCH (08:26)
[2023-10-06] MEDS: Multivitamin w/Zinc Stress 1 TAB PO SCH (08:27)
[2023-10-06] MEDS: Empagliflozin 10 MG TAB PO SCH (08:27)
[2023-10-06] MEDS: Polyethylene Glycol 3350 17 GM Packet PO SCH (08:29)
[2023-10-06] MEDS ORDERED: Aspirin 81 mg Enteric Coated Tablet PO SCH (09:00)
[2023-10-06] MEDS ORDERED: Iopamidol-370 76% 500 ML MDV (1 ML CHARGE) ONE (12:35)
[2023-10-06] MEDS: Morphine 2 MG/ML VIAL SLOW IVP PRN (16:46)
[2023-10-07 05:13] LABS: #Basophils Less than 0.03 10x3/uL (0.0-0.2); %Basophils 0.3 % (0.0-1.0); %Eosinophils 4.6 % (0.0-10.0); %Monocytes 8.4 % (0.0-10.0); %Neutrophils 74.6 % (42.0-75.0); Hematocrit 42.6 % (42.0-52.0); Hemoglobin 13.4 g/dL (14.0-18.0); Mean Corpuscular HGB CONC 31.5 g/dL (32.0-36.0); Mean Corpuscular Hemoglobin 29.6 pg (27.0-31.0); Mean Corpuscular Volume 94.2 fL (78.0-98.0); Mean Platelet Volume 8.7 fL (7.4-10.4); Platelet Count 191 10x3/uL (130-400); RBC Distribution Width 14.2 % (11.5-14.5); Red Blood Cell (RBC) Count 4.52 mill/uL (4.70-6.10)
[2023-10-07 05:49] LABS: Hemoglobin A1c 5.6 % (4.0-6.0)
[2023-10-07 05:57] LABS: ALT (SGPT) 18 U/L (8-55); AST (SGOT) 22 U/L (5-34); Albumin 3.4 g/dL (3.4-4.8); Alkaline Phosphatase 83 U/L (40-110); Anion Gap 11 mmol/L (10-20); BUN (Urea Nitrogen) 22 mg/dL (8.4-25.7); Bilirubin, Direct 0.2 mg/dL (0.1-0.3); Bilirubin, Total 0.4 mg/dL (0.2-1.2); Calc. Creatinine Clearance 76 mL/min (70-130); Calcium 9.7 mg/dL (7.8-10.44); Carbon Dioxide 25 mmol/L (23-31); Cardiac Risk 3.6 (Less than 4.5); Chloride 105 mmol/L (98-107); Cholesterol 97 mg/dl (< 200 Desired); Estimated GFR 74; Glucose 116 mg/dL (83-110); HDL Cholesterol 27 mg/dL (>60 Neg Risk); LDL Cholesterol, Calculated 48 mg/dL; Magnesium 2.3 mg/dL (1.6-2.6); Potassium 4.2 mmol/L (3.5-5.1); Protein, Total 7.3 g/dL (5.8-8.1); Sodium 137 mmol/L (136-145); Triglycerides 109 mg/dL (Less than 150)
[2023-10-07] MEDS: Aspirin 81 mg Enteric Coated Tablet PO SCH (11:19)
[2023-10-07] MEDS: Clopidogrel Bisulfate 75 MG TAB PO SCH (11:19)
[2023-10-08 04:12] LABS: #Basophils 0.05 10x3/uL (0.0-0.2); %Basophils 0.8 % (0.0-1.0); %Eosinophils 8.8 % (0.0-10.0); %Lymphocytes 26.2 % (21.0-51.0); %Monocytes 11.2 % (0.0-10.0); %Neutrophils 52.8 % (42.0-75.0); Hematocrit 40.4 % (42.0-52.0); Hemoglobin 12.7 g/dL (14.0-18.0); Mean Corpuscular HGB CONC 31.4 g/dL (32.0-36.0); Mean Corpuscular Volume 95.3 fL (78.0-98.0); Mean Platelet Volume 8.6 fL (7.4-10.4); Platelet Count 191 10x3/uL (130-400); RBC Distribution Width 13.9 % (11.5-14.5); Red Blood Cell (RBC) Count 4.24 mill/uL (4.70-6.10)
[2023-10-08 04:51] LABS: Anion Gap 13 mmol/L (10-20); BUN (Urea Nitrogen) 21 mg/dL (8.4-25.7); Calc. Creatinine Clearance 79 mL/min (70-130); Calcium 9.5 mg/dL (7.8-10.44); Carbon Dioxide 25 mmol/L (23-31); Chloride 104 mmol/L (98-107); Estimated GFR 78; Glucose 156 mg/dL (83-110); Magnesium 2.3 mg/dL (1.6-2.6); Potassium 3.8 mmol/L (3.5-5.1); Sodium 138 mmol/L (136-145)
[2023-10-08 06:45] VITALS: BMI 32.8
[2023-10-08] MEDS ORDERED: PROPOFOL 20 ML ONE (11:01)
[2023-10-08] MEDS: Acetaminophen 325 MG TAB PO PRN (17:16)
[2023-10-08 18:13] VITALS: BP 125/85; TEMP 97.8
[2023-10-08] MEDS ORDERED: Apixaban 5 MG TAB PO SCH (21:00)
== END 2023-10-08 18:30 | disposition home or self-care (01) | DRG 65 ==
LOC: ERS 10:23 → ERHOLD 13:28 → 2SE 15:54 → OBSVTOIN 10-06 12:07
PROVIDERS: ADMIT Internal Medicine; ATTEND Family Medicine
PROC: 5A09357 Assistance with Respiratory Ventilation, Less than 24 Consecutive Hours, Continuous Positive Airway Pressure (ICD-10-PCS; principal; 2023-10-07)
PROC: B245ZZ4 Ultrasonography of Left Heart, Transesophageal (ICD-10-PCS; 2023-10-08)
DX: I63.9 Cerebral infarction, unspecified (principal); E87.1 Hypo-osmolality and hyponatremia; G81.93 Hemiplegia, unspecified affecting right nondominant side; I50.32 Chronic diastolic (congestive) heart failure; I11.0 Hypertensive heart disease with heart failure; I25.10 Atherosclerotic heart disease of native coronary artery without angina pectoris; G40.909 Epilepsy, unspecified, not intractable, without status epilepticus; E11.9 Type 2 diabetes mellitus without complications; M54.9 Dorsalgia, unspecified; I48.0 Paroxysmal atrial fibrillation; G89.29 Other chronic pain; G47.33 Obstructive sleep apnea (adult) (pediatric); Z95.1 Presence of aortocoronary bypass graft; Z88.8 Allergy status to other drugs, medicaments and biological substances; Z79.899 Other long term (current) drug therapy; Z79.4 Long term (current) use of insulin; Z98.890 Other specified postprocedural states
CPT/HCPCS: 36415; 36416; 70450; 70496; 70498; 70551; 71045; 80048; 80053; 80061; 80076; 83036; 83735; 84443; 84484; 85025; 93005; 93312; 93880; 96372; G0378; J1650; J2272; J2704; Q9967

== ENCOUNTER 2024-02-14 08:44 | Outpatient (CLI) | payer MEDICARE, OTHER | END 2024-02-14 08:45 | disposition home or self-care (01) | LOC: NM 08:44 | PROVIDERS: ATTEND Psychiatry & Neurology Neurology | DX: G20.C Parkinsonism, unspecified (principal); R93.0 Abnormal findings on diagnostic imaging of skull and head, not elsewhere classified | CPT/HCPCS: 78803; A9584 ×2 ==

== ENCOUNTER 2024-04-17 12:09 | Observation (INO) | payer MEDICARE, OTHER ==
[2024-04-17] MEDS ORDERED: Iopamidol-370 76% 500 ML MDV (1 ML CHARGE) ONE (12:10)
[2024-04-17 12:46] LABS: #Basophils 0.04 10x3/uL (0.0-0.2); %Basophils 0.6 % (0.0-1.0); %Eosinophils 4.8 % (0.0-10.0); %Lymphocytes 24.9 % (21.0-51.0); %Monocytes 10.9 % (0.0-10.0); %Neutrophils 58.5 % (42.0-75.0); Hemoglobin 14.5 g/dL (14.0-18.0); Mean Corpuscular HGB CONC 33.7 g/dL (32.0-36.0); Mean Corpuscular Hemoglobin 30.7 pg (27.0-31.0); Mean Corpuscular Volume 91.1 fL (78.0-98.0); Mean Platelet Volume 8.3 fL (7.4-10.4); Platelet Count 130 10x3/uL (130-400); RBC Distribution Width 12.6 % (11.5-14.5); Red Blood Cell (RBC) Count 4.72 mill/uL (4.70-6.10)
[2024-04-17 13:05] LABS: ALT (SGPT) 43 U/L (Less than 45); AST (SGOT) 37 U/L (11-34); Alkaline Phosphatase 134 U/L (40-110); Anion Gap 10 mmol/L (10-20); BUN (Urea Nitrogen) 29 mg/dL (8.4-25.7); Bilirubin, Total 0.3 mg/dL (0.3-1.2); Calc. Creatinine Clearance 0 mL/min (70-130); Calcium 9.2 mg/dL (7.8-10.44); Carbon Dioxide 26 mmol/L (23-31); Chloride 108 mmol/L (98-107); Estimated GFR 82; Globulin 3.4 g/dL (2.4-3.5); Glucose 159 mg/dL (83-110); Potassium 4.2 mmol/L (3.5-5.1); Protein, Total 7.4 g/dL (5.8-8.1); Sodium 140 mmol/L (136-145)
[2024-04-17 13:10] LABS: Troponin I 0.022 ng/mL (< 0.028)
[2024-04-17] MEDS ORDERED: Aspirin Chewable 81 MG TAB ONE (13:33)
[2024-04-17] MEDS ORDERED: Nitroglycerin 0.4 MG TAB 1 EACH ONE (13:38)
[2024-04-17] MEDS ORDERED: Nitroglycerin 0.4 MG TAB (25 Tab Bottle) SL PRN (17:12)
[2024-04-17] MEDS ORDERED: Glucagon 1 MG/ML KIT IM PRN (17:12)
[2024-04-17] MEDS ORDERED: Ondansetron ODT 4 MG TAB PO PRN (17:12)
[2024-04-17] MEDS ORDERED: Dextrose 50% Abboject 50 ML SYRINGE SLOW IVP PRN (17:12)
[2024-04-17] MEDS ORDERED: Insulin Lispro 100 UNIT/ML 10 ML VIAL SC PRN ×2 (17:12)
[2024-04-17] MEDS ORDERED: Dextrose 5% in Water 1,000 ML IV PRN (17:12)
[2024-04-17] MEDS ORDERED: Ondansetron PF 4 MG/2 ML Vial IVP PRN (17:12)
[2024-04-17] MEDS: Ketorolac Tromethamine 30 MG (1 mL) VIAL IVP SCH (20:49)
[2024-04-17] MEDS: Carvedilol 25 MG TAB PO SCH (20:50)
[2024-04-17] MEDS: Famotidine 20 MG TAB PO SCH ×2 (20:50→20:51)
[2024-04-17] MEDS: Gabapentin 300 MG CAP PO SCH (20:50)
[2024-04-17 22:49] LABS: Troponin I 0.022 ng/mL (< 0.028)
[2024-04-17 23:55] VITALS: BMI 34.9
[2024-04-18 05:39] LABS: #Basophils 0.05 10x3/uL (0.0-0.2); %Basophils 0.8 % (0.0-1.0); %Eosinophils 6.9 % (0.0-10.0); %Lymphocytes 34.7 % (21.0-51.0); %Monocytes 11.2 % (0.0-10.0); %Neutrophils 46.1 % (42.0-75.0); Hematocrit 41.9 % (42.0-52.0); Hemoglobin 13.8 g/dL (14.0-18.0); Mean Corpuscular HGB CONC 32.9 g/dL (32.0-36.0); Mean Corpuscular Hemoglobin 30.8 pg (27.0-31.0); Mean Corpuscular Volume 93.5 fL (78.0-98.0); Mean Platelet Volume 8.6 fL (7.4-10.4); Platelet Count 125 10x3/uL (130-400); RBC Distribution Width 12.8 % (11.5-14.5); Red Blood Cell (RBC) Count 4.48 mill/uL (4.70-6.10)
[2024-04-18 06:20] LABS: Anion Gap 13 mmol/L (10-20); BUN (Urea Nitrogen) 22 mg/dL (8.4-25.7); Calc. Creatinine Clearance 92 mL/min (70-130); Calcium 8.9 mg/dL (7.8-10.44); Carbon Dioxide 25 mmol/L (23-31); Chloride 110 mmol/L (98-107); Estimated GFR 88; Glucose 104 mg/dL (83-110); Potassium 4.2 mmol/L (3.5-5.1); Sodium 144 mmol/L (136-145); Troponin I Less than 0.010 ng/mL (< 0.028)
[2024-04-18] MEDS: Aspirin Chewable 81 MG TAB PO SCH (08:25)
[2024-04-18] MEDS: Multivitamin W/ Minerals 1 TAB PO SCH (08:26)
[2024-04-18] MEDS: Clopidogrel Bisulfate 75 MG TAB PO SCH (08:27)
[2024-04-18] MEDS: Tamsulosin HCl 0.4 MG CAP PO SCH (08:27)
[2024-04-18] MEDS: Empagliflozin 10 MG TAB PO SCH (08:27)
[2024-04-18] MEDS: Cholecalciferol 1,000 UNITS (25 MCG) TAB PO SCH (08:27)
[2024-04-18] MEDS: Niacin 500 MG TAB PO SCH (08:28)
[2024-04-18] MEDS ORDERED: Ketorolac Tromethamine 30 MG (1 mL) VIAL IVP SCH (12:00)
[2024-04-18 12:25] VITALS: BP 179/81; TEMP 97.7
[2024-04-18] MEDS: HYDROcodone/Acetaminophen 5/325 mg Tablet PO PRN (14:58)
[2024-04-18] MEDS ORDERED: Atorvastatin Calcium 40 MG TAB PO SCH (21:00)
[2024-04-19] MEDS ORDERED: NIFEdipine XL 60 MG ER.TAB PO SCH (09:00)
== END 2024-04-18 16:13 | disposition home or self-care (01) ==
LOC: ERS 12:09 → OBS 16:12
PROVIDERS: ADMIT Student in an Organized Health Care Education/Training Program; ATTEND Internal Medicine
PROC: B24BZZZ Ultrasonography of Heart with Aorta (ICD-10-PCS; principal; 2024-04-18)
DX: R07.89 Other chest pain (principal); L40.50 Arthropathic psoriasis, unspecified; I25.10 Atherosclerotic heart disease of native coronary artery without angina pectoris; I48.91 Unspecified atrial fibrillation; I13.0 Hypertensive heart and chronic kidney disease with heart failure and stage 1 through stage 4 chronic kidney disease, or unspecified chronic kidney disease; I50.32 Chronic diastolic (congestive) heart failure; N18.2 Chronic kidney disease, stage 2 (mild); E11.22 Type 2 diabetes mellitus with diabetic chronic kidney disease; E78.5 Hyperlipidemia, unspecified; G47.33 Obstructive sleep apnea (adult) (pediatric); G40.909 Epilepsy, unspecified, not intractable, without status epilepticus; Z86.73 Personal history of transient ischemic attack (TIA), and cerebral infarction without residual deficits; Z95.1 Presence of aortocoronary bypass graft; Z88.8 Allergy status to other drugs, medicaments and biological substances; Z79.82 Long term (current) use of aspirin; Z79.84 Long term (current) use of oral hypoglycemic drugs; Z79.899 Other long term (current) drug therapy
CPT/HCPCS: 71045; 71275; 80048; 82962 ×2; 83735; 83880; 84484 ×3; 85025; 85379; 87428; 93005; 93306; 96374; 99285; G0378 ×3; J1885; Q9967; 36415; 36416; 80053; 84443